=== PATIENT | female | born 1990 ===

== ENCOUNTER 2019-05-15 15:59 | Inpatient (IN) | payer OTHER ==
[~2019-05-15] VITALS: Ht 170.2 cm; Wt 93.0 kg
[2019-05-28] MEDS ORDERED: ASPIR 8181 MG PO (09:53)
[2019-05-28] MEDS ORDERED: OBSTETRIX DHA1 EACH PO (09:53)
== END 2019-05-30 14:50 | disposition home or self-care (01) | DRG 807 ==
LOC: O/R 05-22 09:45 → OB/GYN 05-28 06:47 → LDR 05-28 06:47 → OB/GYN 05-28 15:24 → LDR 05-29 09:45 → EDBD 05-29 09:45 → OB/GYN 05-30 14:50
PROVIDERS: ADMIT Obstetrics & Gynecology
PROC: 10E0XZZ Delivery of Products of Conception, External Approach (ICD-10-PCS; principal; 2019-05-28)
PROC: 0HQ9XZZ Repair Perineum Skin, External Approach (ICD-10-PCS; 2019-05-28)
PROC: 0UQMXZZ Repair Vulva, External Approach (ICD-10-PCS; 2019-05-28)
PROC: 3E033VJ Introduction of Other Hormone into Peripheral Vein, Percutaneous Approach (ICD-10-PCS; 2019-05-28)
PROC: 4A1HXCZ Monitoring of Products of Conception, Cardiac Rate, External Approach (ICD-10-PCS; 2019-05-28)
DX: O70.0 First degree perineal laceration during delivery (principal); Z37.0 Single live birth; Z3A.39 39 weeks gestation of pregnancy; Z22.330 Carrier of Group B streptococcus